=== PATIENT | female | born 1935 | race Caucasian/White ===

== ENCOUNTER → 2017-09-30 11:00 | Outpatient (CLI) | payer MEDICARE, OTHER, SELFPAY | PROVIDERS: PCP Family Medicine; Visit Provider Orthopaedic Surgery | DX: G56.01 Carpal tunnel syndrome, right upper limb (principal); I10 Essential (primary) hypertension | CPT/HCPCS: 99204 ==

== ENCOUNTER → 2017-10-04 12:46 | Outpatient (CLI) | payer MEDICARE, OTHER, SELFPAY | PROVIDERS: PCP Family Medicine; Visit Provider Orthopaedic Surgery | DX: G56.01 Carpal tunnel syndrome, right upper limb (principal); Z01.818 Encounter for other preprocedural examination | CPT/HCPCS: 29848 ==

== ENCOUNTER → 2017-10-20 08:46 | Outpatient (BNVA) | payer MEDICARE, OTHER, SELFPAY | PROVIDERS: PCP Family Medicine; Visit Provider Orthopaedic Surgery | DX: Z47.89 Encounter for other orthopedic aftercare (principal); G56.01 Carpal tunnel syndrome, right upper limb ==

== ENCOUNTER → 2017-10-25 07:39 | Outpatient (BNVA) | payer MEDICARE, OTHER, SELFPAY | PROVIDERS: PCP Family Medicine; Referring Provider Family Medicine; Visit Provider Orthopaedic Surgery | DX: R69 Illness, unspecified (principal) ==

== ENCOUNTER 2017-10-25 10:18 | Day surgery (SDC) | payer MEDICARE, OTHER, SELFPAY ==
[2017-10-25 11:26] VITALS: BP 132/79; PULSE 60; RESP 16; TEMP 36.7; O2SAT 96
[2017-10-25] MEDS: Lactated Ringers 1,000 ML 80 ML IV (11:46)
--- NOTE | 2017-10-25 14:14 | W.PM.DSUDISC ---
Discharge Plan Disposition Patient Disposition: HOME Condition: Good Discharge Details Reason For Visit: L carpal tunnel release Attending Provider: Mahendra Cherry Primary Care Provider: Ariel Mathew Home Meds and New Rx's Prescriptions: No Action aspirin 325 MG tablet 325 mg PO DAILY RF: 0 fenofibrate nanocrystallized [Tricor] 48 MG tablet 48 mg PO DAILY Qty: 90 RF: 4 lisinopril 5 MG tablet 5 mg PO DAILY Qty: 90 RF: 3 atorvastatin [Lipitor] 20 MG tablet 20 mg PO DAILY Qty: 90 RF: 4 nitroglycerin [Nitrostat] 0.4 MG tablet, sublingual 0.4 mg Sublingual PRN Qty: 25 RF: 3 atenolol [Tenormin] 50 MG tablet 50 mg PO DAILY Qty: 90 RF: 4 hydrocodone-acetaminophen 1 EACH tablet 1 tab PO Q6H PRN PRNQty: 7 RF: 0 Discharge Instructions Additional Instructions: Elevate L hand above heart level as much as possible overnite tonite. Wiggle fingers L hand 10 times/hour when awake to prevent swelling. Remove splint AND dressings after 48 hours and begin to move L wrist. May shower or bathe and get incision wet after you remove the dressings in 48 hours. Leave incision uncovered when it is dry and sealed. Use L hand as much as your discomfort allows. Take tylenol or ibuprofen as needed for pain. Follow up in 's office in 10-14 days. Equipment/Supplies: Brace Activity:: Activity as Tolerated Remove Dressings/Wound Care:: 48 hours Shower/Bathe:: 48 hours Diet:: regular Discharge Orders Discharge Orders: Discharge Order (Routine); Ordered 10/25/17 Ordered By: Mahendra Cherry
[2017-10-25 15:01] VITALS: BP 128/78; PULSE 57; RESP 16; TEMP 36.4; O2SAT 96
--- NOTE | 2017-10-25 16:15 | ROE_ITS ---
DATE OF PROCEDURE: October 25, 2017 PREOPERATIVE DIAGNOSIS: Carpal tunnel syndrome, left. POSTOPERATIVE DIAGNOSIS: Carpal tunnel syndrome, left. PROCEDURE: Endoscopic carpal tunnel release, left. SURGEON: Mahendra Cherry M.D. ANESTHESIA: IV regional, Sushant Hdez CRNA INDICATIONS: This is an 82-year-old white female with bilateral carpal tunnel syndrome. She underwe nt a successful endoscopic carpal tunnel release on the right three weeks ago. She was so pleased wi th the results she wished to proceed immediately with endoscopic carpal tunnel release on the left. T he risks and complications of the procedure were explained to the patient in detail preoperatively. PROCEDURE: The patient was taken to the Operating Room on 10/25/17. She was placed supine on the ope rating table and an IV regional anesthetic was administered to the left upper extremity. Once good a nesthesia was obtained, the left hand, wrist, and forearm were prepped and draped free in the usual s terile fashion. A transverse incision was made in line with the proximal flexion crease of the wrist beginning at the flexor carpi radialis and extending to the flexor carpi ulnaris tendon. The palmaris longus tendon was retracted radially and a distally-based fascial flap was created to gain access to the carpal can al. A synovial reflector was then used to free up any synovial attachments to the undersurface of th e volar carpal ligament. A series of obturators were used to create room for endoscope. The Brigitte en doscope blade device was then placed in the carpal canal. Care was taken to position the device agai nst the hook of the hamate on the ulnar side of the carpal canal. The endoscope was advanced until t he distal edge of the volar carpal ligament was clearly visualized. At this point, the trigger was depressed, elevating the blade and maintaining the blade in elevation, it was brought out proximally through the incision. Littler scissors were then used to perform a subcutaneous fasciotomy for a distance of 2 inches proxi mal to the incision. The wound was irrigated with saline solution. The wound margins were infiltrated with 0.5% Marcaine with epinephrine solution and a median nerve block was performed with 0.5% Marcaine with epinephrine solution. The subcutaneous veins were cauterized. The skin edges were approximated with two horizon glenys mattress sutures of #4-0 nylon suture material. The wound was dressed with Xeroform gauze, steri le gauze 4x4s, wrapped with a Kerlix bandage, and then followed by wrapping with a 3-inch Nomi bandage . A commercial cock-up wrist splint was applied. The patient's anesthesia was reversed without complications. Blood loss was minimal. She was discha rged to the Recovery Room in good condition. The patient was discharged home from the Day Surgery Unit when fully recovered from her IV regional a nesthesia. She was given instructions to try to elevate her left hand above heart level as much as p ossible overnight tonight. She is instructed to wiggle her fingers 10 times an hour while awake to p revent swelling. After 48 hours she is to remove her dressings and splint and begin to move her left wrist. After she removes the dressings she may shower or bathe and get her incision wet. She is to leave the incision uncovered when it is dry and sealed. She may use her left wrist as much as disco mfort allows. Since she did not need to use any opioids for postoperative pain following her right c arpal tunnel release, I am not prescribing any new ones. I instructed her to take Tylenol or ibuprof en for pain if needed. She is advised she may use her left hand as much as discomfort allows. She w ill follow up in Dr. Cherry's office in 10 to 14 days.
== END 2017-10-25 15:15 | disposition home or self-care (01) ==
PROVIDERS: PCP Family Medicine; Visit Provider Orthopaedic Surgery
PROC: 01N54ZZ Release Median Nerve, Percutaneous Endoscopic Approach (ICD-10-PCS; CPT 29848; principal; 2017-10-25 12:00)
DX: G56.02 Carpal tunnel syndrome, left upper limb (principal); I10 Essential (primary) hypertension
CPT/HCPCS: 29848; J0690; J2250; J3010; L3908

== ENCOUNTER → 2017-11-11 10:09 | Outpatient (BNVA) | payer MEDICARE, OTHER, SELFPAY | PROVIDERS: PCP Family Medicine; Referring Provider Family Medicine; Visit Provider Orthopaedic Surgery | DX: Z47.89 Encounter for other orthopedic aftercare (principal); G56.02 Carpal tunnel syndrome, left upper limb; I10 Essential (primary) hypertension ==

== ENCOUNTER 2019-08-10 02:30 | Outpatient (CLI) | payer MEDICARE, OTHER, SELFPAY ==
[2019-08-10 12:40] LABS: Anion Gap 9.1 mmol/L (3-11); BUN 23 mg/dL (7-18); CO2 27.9 mmol/L (21.0-32.0); CREATININE 0.86 mg/dL (0.55-1.02); Calcium 9.5 mg/dL (8.5-10.1); Chloride 104 mmol/L (98-107); Glucose 105 mg/dL (74-106); Magnesium 1.7 mg/dL (1.8-2.4); Potassium 4.9 mmol/L (3.5-5.1); Sodium 141 mmol/L (136-145)
== END 2019-08-10 02:50 ==
PROVIDERS: PCP Family Medicine; Visit Provider Family Medicine
DX: E83.42 Hypomagnesemia (principal); E87.1 Hypo-osmolality and hyponatremia
CPT/HCPCS: 36415; 80048; 83735

== ENCOUNTER 2020-06-16 10:24 | Emergency (ER) | payer MEDICARE, OTHER, SELFPAY ==
[2020-06-16] VITALS (37 sets, daily range): BP systolic 129–177; BP diastolic 61–114; PULSE 54–69; RESP 13–25; TEMP 37.1; O2SAT 95–98
--- NOTE | 2020-06-16 10:15 | RT.EKG_ITS ---
APPROVED REPORT Exam: Resting ECG Reason for Exam: chest pain Patient Location: E HR:58 bpm ECG Measurements Heart Rate 58 AXIS SC 175 P -33 QRSd 94 QRS 31 QT 422 T 57 QTc 415 Conclusion Sinus bradycardia...rate< 60 Anteroseptal infarct, age Q >35mS, T neg, V1-V2 no stemi
--- NOTE | 2020-06-16 10:45 | DI.RAD_ITS ---
Exam(s) XR CHEST 2V PA LATERAL EXAM: XR CHEST 2V PA LATERAL CLINICAL HISTORY: shakiness. TECHNIQUE: 2D digital imaging was performed. COMPARISON: Prior chest x-ray 07/10/2010 FINDINGS: There has been interval sternotomy. Sternotomy wires are now evident. Heart size is upper normal. Thoracolumbar scoliosis is again noted. Mediastinum is not widened. Right lung is clear. There is platelike atelectasis in the left lung base, laterally. No pleural effusions. No pulmonary edema. Aortic calcification noted as well as calcification in what appears to be the left common carotid monica gin . IMPRESSION: There is platelike atelectasis in the lateral left lung base. Sternotomy wires are noted. Severe th oracic scoliosis. DATA REPOSITORY: RADIATION DOSE DELIVERED:
--- NOTE | 2020-06-16 11:01 | ED.GENADUL_ITS ---
Discharge Plan Disposition Patient Disposition: HOME Condition: Stable Discharge Details Clinical Impression: Alteration in vision Primary Care Provider: Ariel Mathew ED Provider: Maryann Vasquez Home Meds and New Rx's Prescriptions: Continued clotrimazole [Lotrimin AF (clotrimazole)] 1 % cream 1 applic TP TID Qty: 24 RF: 0 atenolol [Tenormin] 50 mg tablet 50 mg PO DAILY Qty: 90 RF: 4 lisinopril 10 mg tablet 10 mg PO DAILY Qty: 90 RF: 3 nitroglycerin [Nitrostat] 0.4 mg tablet, sublingual 0.4 mg Sublingual PRN Qty: 25 RF: 3 triamcinolone acetonide 0.1 % cream 1 applic TP BID PRN (Reason: scalp rash) Qty: 30 RF: 1 aspirin 325 MG tablet 325 mg PO DAILY RF: 0 atorvastatin [Lipitor] 20 mg tablet 20 mg PO DAILY Qty: 90 RF: 4 fenofibrate nanocrystallized [Tricor] 48 mg tablet 48 mg PO DAILY Qty: 90 RF: 4 Discharge Instructions Additional Instructions: Please follow-up with your primary care physician on Wednesday and the neurologist on Wednesday as well Take your aspirin when you arrive home and continue to take your aspirin and other medications as prescribed Should you have recurrent event, speech, sensation change, headache, persistent vision change, or with any new or worsening complaints including chest pain or shortness of breath please return immediately to the emergency room for reevaluation Referrals: Trudi Maldonado MD [ [facility] STAFF PHYSICIAN] - Discharge Data Discharge Date/Time-TO BE ENTERED AT DEPARTURE: 06/16/20 14:24 Medical Decision Making CTA does not show acute pathology, no significant carotid artery stenosis per radiology interpretation and my review Patient has been completely asymptomatic throughout the entirety of her visit today She denies headache, dizziness, persistent vision change My suspicion for intraocular pathology is quite low given her presentation ABCD score 2 Diagnostic labs do not show acute pathology, given patient's initial generalized weakness and tremulousness, I did order a troponin, repeat was subsequently ordered although patient did not have chest pain or shortness of breath Her neurological exam is completely benign Low suspicion for retinal artery occlusion or retinal vein occlusion though she did not have any loss of vision or pain in the affected eye Clinical suspicion given presentation for vitreous hemorrhage, retinal detachment, or any other more ominous pathology, I cannot completely exclude a T IA although my suspicion is lower for this She will need close outpatient follow-up, referral has been made to neurology and primary care physician for close outpatient reevaluation I discussed smoking cessation with patient She will take her aspirin when she arrives home and she is on a full dose aspirin persistently Again she has no chest pain or shortness of breath, she is completely neurologic ally intact, she is ambulatory with steady gait and does not have any signs of posterior stroke on exam today Bactrim nausea sodium slightly benign throughout the entirety of this encounter, her blood pressure was noted to be initially elevated, at time of discharge is 146/70 without any intervention She is discharged home in the care of her family. She has comfortable discharge home at this time I do suspect there is a large anxiety component to her presentation, this is obviously a diagnosis of exclusion and therefore close outpatient follow-up is necessary The I will leave additional testing and intervention to the discretion of the outpatient evaluation There is no indication for emergent inpatient placement, I will leave outpatient MRI discretion of ambulatory evaluation Differential Diagnosis Differential Diagnosis: Ocular migraine, TIA, vitreous hemorrhage, dissection Medical Records Medical records reviewed: Yes I reviewed the patient's medical records. Lab Data Lab results reviewed: Yes I reviewed the patient's lab results. HPI General Mode of arrival: ambulatory . Date/Time Provider Initiated Documentation: 06/16/20 10:25 . Limitations to Documentation: no limitations . Information obtained by: patient . HPI Narrative: This 85-year-old female presents with report of feeling shaky at approximately 8:00. She had fogginess in her right thigh shortly thereafter. She was standing over the sink using steaming water at that time. She denies any speech or sensation changes. She denies any strength pain to bilateral upper or lower extremities. She denies any chest pain or shortness of breath. Patient denies any fever or chills. She denies any urinary symptoms. She denies any persistent visual change. She denies any headache. Patient denies any additional complaints at this time. She has been ambulatory since the event occurred. She states she has baseline vertigo but this was different for her. She adamantly denies any dizziness asso ciated with this episode. She states that the sensation of fogginess and her right thigh lasted approximately 1 to 2 seconds and then resolved completely. She adamantly denies any loss of vision or vision change. She denies a sensation of a straight being pulled over her eye. She states that she has frequent episodes of anxiety that present like this, she has never been formally evaluated for them but she describes them as anxiety . She states that typically she becomes very anxious before she has visitors and her son is visiting today. She denies any nausea or vomiting. She denies any chest pain or shortness of breath. She denies any current weakness or dizziness. She was ambulatory into the emergency room she states that her baseline. Related Data Home Medications Medication Instructions Recorded Confirmed aspirin 325 mg PO DAILY tab-cap 07/27/12 06/16/20 triamcinolone acetonide 0.1 % 1 applic TP BID PRN #30 gm 07/29/18 06/16/20 topical cream clotrimazole 1 % topical cream 1 applic TP TID #24 gm 11/22/18 06/16/20 atenolol 50 mg tablet 50 mg PO DAILY #90 tab-cap 09/19/19 06/16/20 atorvastatin 20 mg tablet 20 mg PO DAILY #90 tab-cap 10/24/19 06/16/20 fenofibrate nanocrystallized 48 mg 48 mg PO DAILY #90 tab-cap 02/27/20 06/16/20 tablet lisinopril 10 mg tablet 10 mg PO DAILY #90 tab 06/11/20 06/16/20 nitroglycerin 0.4 mg sublingual 0.4 mg SUBLINGUAL PRN #25 tab-cap 06/11/20 06/16/20 tablet Previous Rx's Medication Instructions Recorded triamcinolone acetonide 0.1 % 1 applic TP BID PRN #30 gm 07/29/18 topical cream clotrimazole 1 % topical cream 1 applic TP TID #24 gm 11/22/18 atenolol 50 mg tablet 50 mg PO DAILY #90 tab-cap 09/19/19 atorvastatin 20 mg tablet 20 mg PO DAILY #90 tab-cap 10/24/19 fenofibrate nanocrystallized 48 mg 48 mg PO DAILY #90 tab-cap 02/27/20 tablet lisinopril 10 mg tablet 10 mg PO DAILY #90 tab 06/11/20 nitroglycerin 0.4 mg sublingual 0.4 mg SUBLINGUAL PRN #25 tab-cap 06/11/20 tablet Allergies Allergy/AdvReac Type Severity Reaction Status Date / Time clindamycin Allergy Intermediate Facial Verified 06/16/20 10:37 swelling ibuprofen Allergy Intermediate FACIAL Verified 06/16/20 10:37 SWELLING naproxen Allergy Intermediate FACIAL Verified 06/16/20 10:37 SWELLING Penicillins Allergy Intermediate FACIAL Verified 06/16/20 10:37 SWELLING Sulfa (Sulfonamide Allergy Unknown Verified 06/16/20 10:37 Antibiotics) General Stated Complaint: CVA/TIA IVETTE: 2 Review of Systems Narrative: Review of systems negative x7 aside from where indicated in HPI [facility] Medical History (Updated 06/16/20 @ 13:59 by JL Mendenhall) CAD (coronary artery disease) Hx of cancer of uterus Hyperlipidemia Hypertension Hypomagnesemia Surgical History Abdominal hysterectomy endometrial CA Angioplasty Appendectomy Biopsy, Soft Tissue (02/17/17) skin of back, left spine - residual basal cell carcinoma, completely excised. LEFT HEART CARDIAC CATH 50% LAD occluded Family History FAMILY HISTORY Neoplasm BREAST Social History Smoking/Tobacco Use Status: Current every day Tobacco Type: cigarettes Smoking risk assessment performed?: Yes Alcohol Intake: never Drug use: Never Substance use type: does not use Household members: none Frequency: does not exercise Tigist/Sabianism: No preference Seatbelt use: always Do you feel safe at home: Yes Do you feel safe in your relationship?: Yes Exam Const General: cooperative, no acute distress and well developed HENMT Other: No visible sign of trauma Eyes Pupils: PERRL EOM: EOM intact bilaterally Neck Other: No carotid bruit Resp Effort & Inspection: normal respiratory effort Auscultation: clear to auscultation bilaterally Cardio Rate: regular rate Rhythm: regular rhythm GI Inspection: normal to inspection Other: No abdominal tenderness Skin General skin exam: no rashes or lesions noted Neuro General: patient alert and patient oriented x3 Cranial Nerves: CN's II-XI intact bilaterally and PERRL Cognition: normal cognition Speech: speech normal Gait: normal gait Motor: strength 5/5 throughout and no pronator drift Sensory Exam: no sensory deficits noted Coordination: [id number] test normal and [id number]-[id number] test normal Extrem Other: Distal pulses intact Strength and sensation intact distally Course Vital Signs Vital signs: Vital Signs Temperature 37.1 C 06/16/20 10:29 Pulse 66 06/16/20 10:29 Respiratory Rate 25 H 06/16/20 10:29 Blood Pressure 177/114 H 06/16/20 10:29 Pulse Oximetry 98 06/16/20 10:29 Temperature 37.1 C 06/16/20 10:29 Temperature Source Temporal Artery Scan 06/16/20 10:29 Pulse 62 06/16/20 10:49 Pulse 59 L 06/16/20 10:50 Respiratory Rate 18 06/16/20 10:50 Respiratory Effort Non-Labored 06/16/20 10:40 Respiratory Depth Normal 06/16/20 10:40 Respiratory Pattern Normal 06/16/20 10:40 Blood Pressure 176/61 H 06/16/20 10:49 Blood Pressure Mean 87 06/16/20 10:49 Blood Pressure Position Supine 06/16/20 10:29 Pulse Oximetry 97 06/16/20 10:50 Oxygen Delivery Method Room Air 06/16/20 10:29 Oxygen Flow Rate 0 06/16/20 10:29 Pain Level 0 06/16/20 10:29
[2020-06-16 11:12] LABS: Abs Immature Grans 0.03 10^3/uL (0.0-0.06); Absolute Basophil Count 0.06 10^3/uL (0.0-0.2); Absolute Eosinophil Count 0.16 10^3/uL (0.0-0.7); Absolute Lymphocyte Count 1.87 10^3/uL (1.2-3.4); Absolute Monocyte Count 0.59 10^3/uL (0.1-0.8); Absolute Neutrophil Count 6.54 10^3/uL (1.2-6.7); Basophils % 0.6; Eosinophils % 1.7; HCT 41.5 % (36.0-46.0); HGB 13.4 g/dL (11.2-15.7); Immature Grans % 0.3; Lymphocytes % 20.2; MCH 30.2 pg (27.0-33.0); MCHC 32.3 % (32.0-36.0); MCV 93.5 fL (80-95); MPV 10.3 fL (8.0-11.0); Monocytes % 6.4; Neutrophils % 70.8; Nucleated RBC 0 %; Platelet Count 203 10^3/uL (130-400); RBC 4.44 10^6/uL (3.93-5.22); RDW 12.9 % (11.7-14.6); RDW-SD 44.2 fL; WBC 9.25 10^3/uL (4.4-10.8)
[2020-06-16 11:27] LABS: Bilirubin Negative (Negative); Blood Negative (Negative); Clarity Clear (Clear); Glucose Negative (Negative); Ketones Negative (Negative); Leukocyte Esterase Negative (Negative); Nitrite Negative (Negative); Specific Gravity 1.015 (1.005-1.025); Urobilinogen 0.2 EU/dL (Up TO 0.2)
[2020-06-16 11:28] LABS: ALT 27 U/L (14-59); AST 19 U/L (15-37); Albumin 4.3 g/dL (3.4-5.0); Alkaline Phosphatase 78 U/L (46-116); Anion Gap 9.8 mmol/L (3-11); BUN 22 mg/dL (7-18); Bilirubin, Total 0.5 mg/dL (0.2-1.0); CO2 28.2 mmol/L (21.0-32.0); Calcium 9.4 mg/dL (8.5-10.1); Chloride 105 mmol/L (98-107); Estimated GFR 52.82 (mL/min/1.73m2); Glucose 117 mg/dL (74-106); Potassium 4.7 mmol/L (3.5-5.1); Sodium 143 mmol/L (136-145); Total Protein 7.7 g/dL (6.4-8.2); Troponin I < 0.05 ng/mL (<0.06)
[2020-06-16 11:34] LABS: TSH 1.71 uIU/mL (0.36-3.74)
[2020-06-16] MEDS: Normal Saline - Diluent 50 ML VIAL IV (12:03)
[2020-06-16] MEDS: Omnipaque 350 MG/ML 100 ML BTL IJ (12:04)
--- NOTE | 2020-06-16 12:06 | DI.CT_ITS ---
Exam(s) CT BRAIN NECK CTA EXAM: CT BRAIN NECK CTA CLINICAL HISTORY: right vision loss. TECHNIQUE: Imaging Protocol: Axial CT angiography was performed with multi-slice acquisition and mu lti-planar and/or 3D reconstructions. CONTRAST MATERIAL: Intravenous: Omnipaque 350 Contrast volume:85 cc COMPARISON: Chest x-ray earlier today. FINDINGS: CTA Neck W: Aortic arch anatomy: The entire aortic arch is not included in the field of view. The lower most brittany ge reveals a diameter of 3 point 9 cm. Also somewhat of a pseudo-coarctation configuration of the di stal arch. Sternotomy wires are noted. Anterior circulation: Bovine configuration. No evidence of significant stenosis at the origin of the common carotid arteries. Distally there is plaque in both common carotid arteries and proximal internal carotid arteries with approximately 50 p ercent stenosis on the right side and 60 percent stenosis on the left side. Above this level the int ernal carotid arteries are patent in the mid-upper neck. Posterior circulation: Both vertebral arteries originated conventional fashion off of the subclavian arteries. Left vertebr al artery is dominant although both vessels exhibits satisfactory caliber in the foramen transversari um. Both vertebral arteries contribute to the formation of the basilar artery at the skull base. CTA Brain W: Anterior circulation: Both internal carotid arteries are demonstrated to be patent in the skull base and intracavernous asp ects with some mural calcification within the cavernous sinuses but no significant stenosis within th e intracavernous internal carotid arteries. Supraclinoid aspects both internal carotid arteries are patent. Both middle cerebral arteries appear patent. Left A1 segment is patent. Right A1 segment i s not opacified, occluded or atretic. Both anterior cerebral arteries are opacified although the lef t directly via the ipsilateral A1 segment. On the right side the anterior cerebral artery appears oc cluded just distal to its origin beyond the anterior communicating artery. However, there is a right anterior cerebral artery opacified more distally which comes off of the dominant left anterior cereb ral artery. Posterior circulation: Basilar artery is formed at the skull base by both vertebral arteries. There is mural calcification of both vertebral arteries at the skull base but no tight stenosis at this level.. Distally the basi lar artery gives off both superior cerebellar arteries although there is a tight focal stenosis in th e right superior cerebellar artery 5 millimeters distal to its origin. Above this level the basilar artery terminates as patent bilateral posterior cerebral arteries. CT BRAIN: There is no evidence of intracranial hemorrhage, mass effect, or shift of midline structures. There are no extra-axial fluid collections. Ventricles are not enlarged or shifted and there is no blood w ithin the ventricular system nor within the basal cisterns. There are no ring enhancing lesions in t he brain and no abnormal meningeal enhancement. IMPRESSION: 1. 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 2. Vertebral arteries are patent. 3. In the intracranial compartment there is either conclusion or tree see of the right A1 segment. Right anterior cerebral artery appears occluded 3 millimeters distal to its origin but reconstituted more distally off of the patent left anterior cerebral artery. The left A1 segment is dominant. An terior communicating artery is patent. 4. Recommend follow-up brain MRI/ MRA Study 1st read by [facility]. Final report called by myself to [facility] ER physician 10/2020 6:57 p.m. RADIATION DOSE DELIVERED: 2,097.34mGy.cm Total DLP DATA REPOSITORY: All CT scans at this facility are submitted to the National Radiology Data Registry (NRDR) Dose Index Registry (DIR) with the [employer] (ACR). RADIATION OPTIMIZATION: All CT scans at this facility use at least one of these dose optimization te chniques: automated exposure control; mA and/or kV adjustment per patient size (includes targeted exa ms where dose is matched to clinical indication); or iterative reconstruction.
--- NOTE | 2020-06-16 12:49 | DI.VRAD_ITS ---
PROCEDURE INFORMATION: Exam: XR Chest Exam date and time: 06/16/2020 12:12 PM Age: 85 years old Clinical indication: Other: Shakiness TECHNIQUE: Imaging protocol: XR of the chest. Views: 2 views. COMPARISON: No relevant prior studies available. FINDINGS: Lungs: Unremarkable. No consolidation. Pleural spaces: Unremarkable. No pleural effusion. No pneumothorax. Heart/Mediastinum: Unremarkable. No cardiomegaly. Bones/joints: Severe thoracic scoliosis. Median sternotomy wires. IMPRESSION: No acute cardiopulmonary findings. Dictated and Authenticated by: Kev Loo MD. Ordering:JAMES Wolf MD
--- NOTE | 2020-06-16 12:59 | DI.VRAD_ITS ---
PROCEDURE INFORMATION: Exam: CT Angiography Head With Contrast, Arteriography Exam date and time: 06/16/2020 11:54 AM Age: 85 years old Clinical indication: Other: Right vision loss TECHNIQUE: Imaging protocol: Computed tomography angiography of the head with contrast. Exam focused on the arteries. 3D rendering (Not supervised by radiologist): MIP and/or 3D reconstructed images were created by the technologist. Radiation optimization: All CT scans at this facility use at least one of these dose optimization techniques: automated exposure control; mA and/or kV adjustment per patient size (includes targeted exams where dose is matched to clinical indication); or iterative reconstruction. Contrast material: OMNIPAQUE 350; Contrast volume: 85 ml; Contrast route: INTRAVENOUS (IV); COMPARISON: CT HEAD WITHOUT CONTRAST 05/09/2017 11:22 AM FINDINGS: ANTERIOR CIRCULATION: Right internal carotid artery: Unremarkable. Intracranial segment is patent with no significant stenosis. No aneurysm. Right middle cerebral artery: Unremarkable. No occlusion or significant stenosis. No aneurysm. Right anterior cerebral artery: Right A1 segment is atretic Unremarkable. No occlusion or significant stenosis. No aneurysm. Left internal carotid artery: Unremarkable. Intracranial segment is patent with no significant stenosis. No aneurysm. Left middle cerebral artery: Unremarkable. No occlusion or significant stenosis. No aneurysm. Left anterior cerebral artery: Unremarkable. No occlusion or significant stenosis. No aneurysm. POSTERIOR CIRCULATION: Right vertebral artery: Unremarkable. No occlusion or significant stenosis. No aneurysm. Left vertebral artery: Unremarkable. No occlusion or significant stenosis. No aneurysm. Basilar artery: Unremarkable. No occlusion or significant stenosis. No aneurysm. Right posterior cerebral artery: Unremarkable. No occlusion or significant stenosis. No aneurysm. Left posterior cerebral artery: Unremarkable. No occlusion or significant stenosis. No aneurysm. Brain: No definite mass, mass effect, or midline shift. Cerebral ventricles: No ventriculomegaly. Bones/joints: Unremarkable. No acute fracture. Soft tissues: Unremarkable. IMPRESSION: No large vessel stenosis or occlusion. PROCEDURE INFORMATION: Exam: CT Angiography Neck With Contrast Exam date and time: 06/16/2020 11:54 AM Age: 85 years old Clinical indication: Other: Right vision loss TECHNIQUE: Imaging protocol: Computed tomography angiography of the neck with contrast. 3D rendering (Not supervised by radiologist): MIP and/or 3D reconstructed images were created by the technologist. Contrast material: OMNIPAQUE 350; Contrast volume: 85 ml; Contrast route: INTRAVENOUS (IV); COMPARISON: CT HEAD WITHOUT CONTRAST 05/09/2017 11:22 AM FINDINGS: Right common carotid artery: Plaque at the bifurcation. No dissection or occlusion. Right internal carotid artery: No stenosis of the extracranial segment. No dissection or occlusion. Right external carotid artery: No occlusion or stenosis of the origin. Right vertebral artery: No stenosis. No dissection or occlusion. Left common carotid artery: Plaque at the bifurcation. No dissection or occlusion. Left internal carotid artery: No stenosis of the extracranial segment. No dissection or occlusion. Left external carotid artery: No occlusion or stenosis of the origin. Left vertebral artery: No stenosis. No dissection or occlusion. Bones/joints: No acute fracture. Soft tissues: Normal. No significant soft tissue swelling. IMPRESSION: Less than 50% stenosis bilateral internal carotid arteries. REFERENCES: NASCET CRITERIA. The degree of internal carotid artery stenosis is based on NASCET criteria. Normal is no stenosis. Mild is less than 50% stenosis. Moderate is 50-69% stenosis. Severe is 70% to 99% stenosis. Total occlusion is no detectable patent lumen. Dictated and Authenticated by: Kev Loo MD. Ordering:JAMES Wolf MD
[2020-06-16 13:53] LABS: Troponin I < 0.05 ng/mL (<0.06)
--- NOTE | 2020-06-16 14:37 | NUR.NOTE ---
Nursing Note: Faxed referral to neuro. MG
--- NOTE | 2020-06-18 10:58 | PDOC.ERCMPRO ---
Care Management Progress Note CM rec'd referral re: F/U MRI. CM called ED and spoke with Rashmi and Dr. Montes, and reviewed chart. Dr. Montes spoke with Dr. Fu to make a plan for urgent MRI, as patient is scheduled to see Neurology today, 06/18/20.
== END 2020-06-16 14:24 | disposition home or self-care (01) ==
PROVIDERS: Emergency Provider Physician Assistant; PCP Family Medicine
DX: H53.8 Other visual disturbances (principal); R93.89 Abnormal findings on diagnostic imaging of other specified body structures
CPT/HCPCS: 36416; 70496; 70498; 80053; 82962; 93005; 99285; 71046; 81003; 84443; 84484; 85025; 93010; 99284; J3490

== ENCOUNTER → 2020-06-18 13:33 | Outpatient (BNVA) | payer MEDICARE, OTHER, SELFPAY | PROVIDERS: PCP Family Medicine; Referring Provider Family Medicine; Visit Provider Psychiatry & Neurology Neurology | DX: F41.9 Anxiety disorder, unspecified (principal); H54.7 Unspecified visual loss | CPT/HCPCS: 99215 ==

== ENCOUNTER 2020-06-21 08:12 | Day surgery (SDC) | payer MEDICARE, OTHER, SELFPAY ==
[2020-06-21 08:36] VITALS: BP 143/75; PULSE 56; RESP 16; TEMP 36.6; O2SAT 98
[2020-06-21] MEDS: Lactated Ringers 1,000 ML 80 ML IV (08:56)
[2020-06-21] MEDS: VANCOMYCIN/WATER (PEG) 1 GM/200 ML BAG IVPB (08:57)
--- NOTE | 2020-06-21 09:12 | W.PM.DSUDISC ---
Discharge Plan Disposition Patient Disposition: HOME Condition: Good Discharge Details Reason For Visit: Correction right 2nd hammertoe deformity Attending Provider: Geraldo Andres Primary Care Provider: Ariel Mathew Home Meds and New Rx's Prescriptions: New oxycodone-acetaminophen 2.5-325 mg tablet 1 tab PO QID PRNQty: 7 RF: 0 Continued clotrimazole [Lotrimin AF (clotrimazole)] 1 % cream 1 applic TP TID Qty: 24 RF: 0 atenolol [Tenormin] 50 mg tablet 50 mg PO DAILY Qty: 90 RF: 4 lisinopril 10 mg tablet 10 mg PO DAILY Qty: 90 RF: 3 nitroglycerin [Nitrostat] 0.4 mg tablet, sublingual 0.4 mg Sublingual PRN Qty: 25 RF: 3 triamcinolone acetonide 0.1 % cream 1 applic TP BID PRN (Reason: scalp rash) Qty: 30 RF: 1 aspirin 325 MG tablet 325 mg PO DAILY RF: 0 atorvastatin [Lipitor] 20 mg tablet 20 mg PO DAILY Qty: 90 RF: 4 fenofibrate nanocrystallized [Tricor] 48 mg tablet 48 mg PO DAILY Qty: 90 RF: 4 Discharge Instructions Activity:: Elevate Remove Dressings/Wound Care:: Do Not Remove Shower/Bathe:: Cover Diet:: Normal Diet Discharge Orders Discharge Orders: Discharge Order (Routine); Ordered 06/21/20 Ordered By: Geraldo Andres DS: Diagnosis Discharge Diagnosis (1) Hammertoe of second toe of right foot: Status: Acute
[2020-06-21] MEDS: Bupivacaine 0.5% Pres-Free 30 ML VIAL (09:42)
[2020-06-21] MEDS: Dexamethasone 4 MG/ML VIAL (09:48)
[2020-06-21 10:08] VITALS: BP 129/75; PULSE 64; RESP 16; TEMP 36.4; O2SAT 97
--- NOTE | 2020-06-21 10:13 | W.PM.DSUDISC ---
Discharge Plan Disposition Patient Disposition: HOME Condition: Good Discharge Details Reason For Visit: Correction right 2nd hammertoe deformity Attending Provider: Geraldo Andres Primary Care Provider: Ariel Mathew Home Meds and New Rx's Prescriptions: Continued clotrimazole [Lotrimin AF (clotrimazole)] 1 % cream 1 applic TP TID Qty: 24 RF: 0 atenolol [Tenormin] 50 mg tablet 50 mg PO DAILY Qty: 90 RF: 4 lisinopril 10 mg tablet 10 mg PO DAILY Qty: 90 RF: 3 nitroglycerin [Nitrostat] 0.4 mg tablet, sublingual 0.4 mg Sublingual PRN Qty: 25 RF: 3 triamcinolone acetonide 0.1 % cream 1 applic TP BID PRN (Reason: scalp rash) Qty: 30 RF: 1 aspirin 325 MG tablet 325 mg PO DAILY RF: 0 atorvastatin [Lipitor] 20 mg tablet 20 mg PO DAILY Qty: 90 RF: 4 fenofibrate nanocrystallized [Tricor] 48 mg tablet 48 mg PO DAILY Qty: 90 RF: 4 Discharge Instructions Activity:: Elevate Remove Dressings/Wound Care:: Do Not Remove Shower/Bathe:: Cover Diet:: Normal Diet Discharge Orders Discharge Orders: Discharge Order (Routine); Ordered 06/21/20 Ordered By: Geraldo Andres DS: Diagnosis Discharge Diagnosis (1) Hammertoe of second toe of right foot: Status: Acute
[2020-06-21 10:52] VITALS: BP 135/77; PULSE 58; RESP 18; TEMP 36.4; O2SAT 97
== END 2020-06-21 11:17 | disposition home or self-care (01) ==
PROVIDERS: PCP Family Medicine; Visit Provider Podiatrist
PROC: (CPT 28820; principal; 2020-06-21 10:00)
DX: M20.41 Other hammer toe(s) (acquired), right foot (principal); I25.10 Atherosclerotic heart disease of native coronary artery without angina pectoris; I10 Essential (primary) hypertension
CPT/HCPCS: 28820; J1100

== ENCOUNTER 2020-11-26 11:41 | Outpatient (CLI) | payer MEDICARE, OTHER, SELFPAY ==
[2020-11-26 13:10] LABS: Calculated LDL 104 mg/dL (<100); Cholesterol 178 mg/dL (<200); HDL Cholesterol 37 mg/dL (40-60); Triglyceride 186 mg/dL (<150)
== END 2020-11-26 11:42 | disposition home or self-care (01) ==
LOC: LOS 11:41
PROVIDERS: PCP Family Medicine; Referring Provider Family Medicine; Visit Provider Family Medicine
DX: E78.5 Hyperlipidemia, unspecified (principal)
CPT/HCPCS: 36415; 80061

== ENCOUNTER 2021-08-21 15:13 | Outpatient (REF) | payer MEDICARE, OTHER, SELFPAY ==
[2021-08-21 18:22] LABS: Bilirubin Negative (Negative); Blood Large (Negative); Clarity Cloudy (Clear); Glucose Negative (Negative); Ketones Negative (Negative); Leukocyte Esterase Large (Negative); Nitrite Positive (Negative); Urobilinogen 0.2 EU/dL (Up TO 0.2); pH 5.5 (5-8)
[2021-08-21 18:32] LABS: Bacteria Many HPF (Negative); C & S Indicated? Yes; Casts Negative LPF (Negative); Crystals Negative HPF (Negative); Epithelial Cells Few HPF (Negative); Mucus Moderate (Negative); RBC 20-50 HPF (0-2); WBC >50 HPF (0-5)
== END 2021-08-21 15:14 | disposition home or self-care (01) ==
LOC: LBN 15:13
PROVIDERS: PCP Family Medicine; Visit Provider Physician Assistant Medical
DX: R39.89 Other symptoms and signs involving the genitourinary system (principal)
CPT/HCPCS: 87077; 81003; 81015; 87086; 87186

== ENCOUNTER 2022-04-18 11:59 | Emergency (ER) | payer MEDICARE, OTHER, SELFPAY ==
[2022-04-18 12:05] VITALS: BP 167/70; PULSE 68; RESP 18; TEMP 36.8; O2SAT 98
--- NOTE | 2022-04-18 12:30 | DI.RAD_ITS ---
Exam(s) XR HIP RT COMPLETE AP PELVIS EXAM: XR HIP RT COMPLETE AP PELVIS INDICATION: pain right hip, atraumatic. COMPARISON: CR BILATERAL HIPS ADULT from 09/07/2016 TECHNIQUE: 2D digital imaging was performed. Three views. FINDINGS: No evidence of fracture or dislocation. Mild degenerative changes in the hips and SI joints. Severe degenerative changes in the lower lumbar spine. Surgical clips on both sides of the pelvis. Promin ent vascular calcifications. IMPRESSION: No acute abnormality. DATA REPOSITORY: RADIATION DOSE DELIVERED:
--- NOTE | 2022-04-18 13:31 | DI.VRAD_ITS ---
PROCEDURE INFORMATION: Exam: XR Right Hip Exam date and time: 04/18/2022 1:01 PM Age: 86 years old Clinical indication: Hip pain; Right hip TECHNIQUE: Imaging protocol: Radiologic exam of the right hip. Views: 2 or 3 views hip with pelvis when performed. COMPARISON: CR BILATERAL HIPS ADULT 09/07/2016 3:02 PM FINDINGS: Bones/joints: Degenerative changes in the sacroiliac joints and both hips. There is no evidence of acute fracture.There is no evidence of malalignment or dislocation. Soft tissues: Unremarkable. Intraperitoneal space: Surgical clips in the pelvis IMPRESSION: There is no evidence of acute fracture.There is no evidence of malalignment or dislocation. Dictated and Authenticated by: Emily Simpson MD. Ordering:JAMES Wolf MD
[2022-04-18 13:53] VITALS: BP 163/76; PULSE 59; RESP 16; TEMP 36.1; O2SAT 98
--- NOTE | 2022-04-18 15:03 | W.ED.GENAD ---
Discharge Plan Disposition Patient Disposition: Home Discharge Details Clinical Impression: Acute pain of right hip Primary Care Provider: Ariel Mathew ED Provider: Maryann Vasquez Home Meds and New Rx's Prescriptions: New methylprednisolone [Medrol (Son)] 4 mg tablets,dose pack See Rx Instructions .ROUTE .COMPLEX Qty: 21 0RF Rx Instructions: orally per package directions cyclobenzaprine 5 mg tablet 5 mg PO BID PRNQty: 10 0RF Continued clotrimazole [Lotrimin AF (clotrimazole)] 1 % cream 1 applic TP TID Qty: 24 0RF triamcinolone acetonide 0.1 % cream 1 applic TP BID PRN (Reason: scalp rash) Qty: 30 1RF atenolol [Tenormin] 50 mg tablet 50 mg PO DAILY Qty: 90 4RF atorvastatin [Lipitor] 20 mg tablet 20 mg PO DAILY Qty: 90 4RF aspirin 325 MG tablet 325 mg PO DAILY fenofibrate nanocrystallized [Tricor] 48 mg tablet 48 mg PO DAILY Qty: 90 4RF lisinopril 10 mg tablet 10 mg PO DAILY Qty: 90 3RF sertraline 25 mg tablet 25 mg PO DAILY Qty: 90 3RF nitroglycerin [Nitrostat] 0.4 mg tablet, sublingual 0.4 mg Sublingual PRN Qty: 25 3RF Discharge Instructions Instructions: Leg Pain (ED) Additional Instructions: Please follow-up with your primary care physician and orthopedist with persistent pain Take the Medrol Dosepak as prescribed You may try taking the Flexeril, this is a muscle relaxant, this is to be taken twice a day as needed for discomfort Referrals: Skyler Weaver MD [ [facility] STAFF PHYSICIAN] - Ariel Mathew MD [Primary Care Provider] - 2 days Medical Decision Making 86-year-old female with hip pain, no evidence of acute abnormality on x-ray, no abdominal tenderness or CVA tenderness, no abdominal bruit or pulsatile mass, ambulatory with steady gait, mild tenderness with full extension of back, comfortable in flexion X-ray ordered for basic evaluation of right hip and pelvis, does not show evidence of acute abnormality No midline lumbar spine tenderness Discharged home on steroids, 5 mg Flexeril, and encouraged to follow-up with primary care physician on Wednesday Return precautions reviewed and patient expressed understanding Medical Records Medical records reviewed: Yes I reviewed the patient's medical records. Lab Data Lab results reviewed: Yes I reviewed the patient's lab results. HPI General Date/Time Provider Initiated Documentation: 04/18/22 12:14. HPI Narrative: This 86-year-old female presents with report of right lower back pain worse with sitting up straight. Denies known trauma. States he has a history of sciatica but this is different. Denies any urinary complaints. Denies any pain at rest, predominantly with position change Denies fever or chills, denies any strength changes to your lower extremities or changes in bowel or bladder. Denies any illicit drug use. Has taken Tylenol without alleviation in pain. Related Data Home Medications Medication Instructions Recorded Confirmed aspirin 325 mg tablet 325 mg PO DAILY 07/27/12 04/18/22 triamcinolone acetonide 0.1 % 1 applic topical BID PRN scalp 07/29/18 04/18/22 topical cream rash #30 grams clotrimazole 1 % topical cream 1 applic topical TID #24 grams 11/22/18 04/18/22 (Lotrimin AF (clotrimazole)) fenofibrate nanocrystallized 48 mg 48 mg PO DAILY #90 tab-caps 06/09/21 04/18/22 tablet (Tricor) lisinopril 10 mg tablet 10 mg PO DAILY #90 tabs 06/12/21 04/18/22 atenolol 50 mg tablet (Tenormin) 50 mg PO DAILY #90 tab-caps 11/27/21 04/18/22 atorvastatin 20 mg tablet (Lipitor) 20 mg PO DAILY #90 tab-caps 11/27/21 04/18/22 sertraline 25 mg tablet 25 mg PO DAILY #90 tabs 02/24/22 04/18/22 nitroglycerin 0.4 mg sublingual 0.4 mg sublingual PRN #25 tab-caps 03/23/22 04/18/22 tablet (Nitrostat) cyclobenzaprine 5 mg tablet 5 mg PO BID PRN #10 tabs 04/18/22 methylprednisolone 4 mg tablets in See Rx Instructions PO .COMPLEX 04/18/22 a dose pack (Medrol (Son)) #21 dose pk Previous Rx's Medication Instructions Recorded triamcinolone acetonide 0.1 % 1 applic topical BID PRN scalp 07/29/18 topical cream rash #30 grams clotrimazole 1 % topical cream 1 applic topical TID #24 grams 11/22/18 (Lotrimin AF (clotrimazole)) fenofibrate nanocrystallized 48 mg 48 mg PO DAILY #90 tab-caps 06/09/21 tablet (Tricor) lisinopril 10 mg tablet 10 mg PO DAILY #90 tabs 06/12/21 atenolol 50 mg tablet (Tenormin) 50 mg PO DAILY #90 tab-caps 11/27/21 atorvastatin 20 mg tablet (Lipitor) 20 mg PO DAILY #90 tab-caps 11/27/21 sertraline 25 mg tablet 25 mg PO DAILY #90 tabs 02/24/22 nitroglycerin 0.4 mg sublingual 0.4 mg sublingual PRN #25 tab-caps 03/23/22 tablet (Nitrostat) cyclobenzaprine 5 mg tablet 5 mg PO BID PRN #10 tabs 04/18/22 methylprednisolone 4 mg tablets in See Rx Instructions PO .COMPLEX 04/18/22 a dose pack (Medrol (Son)) #21 dose pk Allergies Allergy/AdvReac Type Severity Reaction Status Date / Time clindamycin Allergy Intermediate Facial Verified 04/18/22 12:09 swelling ibuprofen Allergy Intermediate FACIAL Verified 04/18/22 12:09 SWELLING naproxen Allergy Intermediate FACIAL Verified 04/18/22 12:09 SWELLING Penicillins Allergy Intermediate FACIAL Verified 04/18/22 12:09 SWELLING Sulfa (Sulfonamide Allergy Unknown Verified 04/18/22 12:09 Antibiotics) General Stated Complaint: Nk/Back Pain IVETTE: 4 PFSH All Active Problems (Updated 04/18/22 @ 13:44 by JL Mendenhall) Acute pain of right hip (Acute) Anxiety (Chronic) Hammertoe of second toe of right foot (Acute) Carpal tunnel syndrome, unspecified upper limb (Acute) Atherosclerosis of koi coronary artery (Acute) s/p angioplasty 1997 cath 07/19-bypass rca and lad Basal cell carcinoma of upper back (Acute) 12/16/16 LEFT UPPER BACK Dysplastic skin lesion (Acute 11/11/16) upper back Essential hypertension (Acute) Hyperlipidemia (Acute) Malignant neoplasm of 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/03) endometrial CA; JONO/radiation Osteoarthritis of spine with radiculopathy, lumbar region (Acute 11/11/16) Smoker (Chronic) quit 2001 smoking now encouraged to quit Lichen sclerosus (Acute 07/17/13) Vaginal lesion (Acute 01/07/02) Status post abdominal hysterectomy (Acute) History of left heart catheterization (Acute) History of coronary angioplasty (Acute) History of appendectomy (Acute) Hypertension (Chronic) a white coat element Subconjunctival bleed (Acute) Skin lesion (Acute) Cerumen impaction (Acute) Trigger finger of all digits of both hands (Acute) Alteration in vision (Acute) Anxiety (Chronic) Hypomagnesemia (Acute) Medical History CAD (coronary artery disease) Hx of cancer of uterus Hyperlipidemia Hypertension Surgical History Abdominal hysterectomy endometrial CA Angioplasty Appendectomy Biopsy, Soft Tissue (02/17/17) skin of back, left spine - residual basal cell carcinoma, completely excised. History of carpal tunnel surgery Bilateral LEFT HEART CARDIAC CATH 50% LAD occluded Family History (Updated 12/03/21 @ 16:04 by Reyna Rodas) FAMILY HISTORY Neoplasm BREAST Social History (Updated 12/03/21 @ 16:04 by Reyna Rodas) Smoking/Tobacco Use Status: Current-Occasional Tobacco Type: cigarettes Quit status: considering quitting Second Hand Exposure: Yes Smoking risk assessment performed?: Yes Alcohol Intake: never Drug use: Never Substance use type: does not use Caregiver/Support person: No Household members: none Housing: house Number of Children: 3 number of grandchildren: 9 Communication Needs: Hard of Hearing Pets and animals: No Sexually active: No What is your relationship status?: How often do you talk on the phone with friends or family?: three or more times per week How often do you get together with friends or relatives?: twice per week How often do you attend jew or advent services?: 1-3 times per year Do you belong to any clubs or organized social groups?: no Panel score (0-1 are the most socially isolated patients): 1 What type of physical activity do you participate in: none Frequency: does not exercise Tigist/Scientology: Church Seatbelt use: always Drive intox or ride w/intox class a regional drivers: No Do you feel safe at home: Yes Do you feel safe in your relationship?: Yes Exam Const General: cooperative, comfortable and no acute distress Orientation: alert and oriented x3 Resp Effort & Inspection: normal respiratory effort Cardio Rate: regular rate GI Inspection: normal to inspection Back/Spine/Pelvis Back: no CVA tenderness Back/spine/pelvis image: 1. tenderness Skin General skin exam: no rashes or lesions noted Full body images: 1. tenderness Neurovascularly intact bilateral lower extremities Neuro General: patient alert and patient oriented x3 Other: Strength and sensation intact distally, neurovascularly intact, Extrem Other: Tenderness with palpation to right hip and glutes, mildly decreased abduction and internal rotation of hip secondary to discomfort Course Vital Signs Vital signs: Vital Signs Temperature 36.8 C 04/18/22 12:05 Pulse 68 04/18/22 12:05 Respiratory Rate 18 04/18/22 12:05 Blood Pressure 167/70 H 04/18/22 12:05 Pulse Oximetry 98 04/18/22 12:05 Temperature 36.1 C L 04/18/22 13:53 Temperature Source Tympanic 04/18/22 13:53 Pulse 59 L 04/18/22 13:53 Respiratory Rate 16 04/18/22 13:53 Respiratory Effort Normal, Non-Labored 04/18/22 12:10 Blood Pressure 163/76 H 04/18/22 13:53 Blood Pressure Position Sitting 04/18/22 12:05 Pulse Oximetry 98 04/18/22 13:53 Oxygen Delivery Method Room Air 04/18/22 13:53 Oxygen Flow Rate 0 04/18/22 13:53 Pain Level 5 04/18/22 12:59
== END 2022-04-18 13:58 | disposition home or self-care (01) ==
PROVIDERS: Emergency Provider Physician Assistant; PCP Family Medicine
DX: M25.551 Pain in right hip (principal); I10 Essential (primary) hypertension
CPT/HCPCS: 99283; 73502

== ENCOUNTER 2022-06-13 12:37 | Outpatient (REF) | payer MEDICARE, OTHER, SELFPAY ==
[2022-06-13 16:47] LABS: Abs Immature Grans 0.03 10^3/uL (0.0-0.06); Absolute Basophil Count 0.04 10^3/uL (0.0-0.2); Absolute Eosinophil Count 0.07 10^3/uL (0.0-0.7); Absolute Lymphocyte Count 0.96 10^3/uL (1.2-3.4); Absolute Monocyte Count 0.45 10^3/uL (0.1-0.8); Absolute Neutrophil Count 5.84 10^3/uL (1.2-6.7); Basophils % 0.5; Eosinophils % 0.9; HCT 41.4 % (36.0-46.0); HGB 13.4 g/dL (11.2-15.7); Immature Grans % 0.4; MCH 29.8 pg (27.0-33.0); MCHC 32.4 % (32.0-36.0); MCV 92 fL (80-95); MPV 10.1 fL (8.0-11.0); Monocytes % 6.1; Neutrophils % 79.1; Platelet Count 176 10^3/uL (130-400); RDW 12.8 % (11.7-14.6); RDW-SD 43.4 fL; WBC 7.39 10^3/uL (4.4-10.8)
[2022-06-13 16:49] LABS: ESR 3 mm/hr (0-30)
[2022-06-13 16:56] LABS: ALT 22 U/L (14-59); AST 20 U/L (15-37); Albumin 4.4 g/dL (3.4-5.0); Alkaline Phosphatase 72 U/L (46-116); Anion Gap 9.2 mmol/L (3-11); BUN 17 mg/dL (7-18); Bilirubin, Total 0.6 mg/dL (0.2-1.0); CO2 25.8 mmol/L (21.0-32.0); CREATININE 0.9 mg/dL (0.55-1.02); Calcium 9.7 mg/dL (8.5-10.1); Chloride 101 mmol/L (98-107); Estimated GFR 62.26 (mL/min/1.73m2); Glucose 109 mg/dL (74-106); Potassium 4.7 mmol/L (3.5-5.1); Sodium 136 mmol/L (136-145); Total Protein 7.3 g/dL (6.4-8.2)
== END 2022-06-13 12:38 | disposition home or self-care (01) ==
LOC: LBN 12:37
PROVIDERS: PCP Family Medicine; Visit Provider Nurse Practitioner Family
DX: R51.9 Headache, unspecified (principal); M25.50 Pain in unspecified joint
CPT/HCPCS: 80053; 85652; 85025

== ENCOUNTER 2023-06-15 10:45 | Outpatient (CLI) | payer MEDICARE, OTHER, SELFPAY ==
[2023-06-15 12:24] LABS: Estimated GFR 54.53 (mL/min/1.73m2)
[2023-06-15 13:14] LABS: Hemoglobin A1C 5.6 % (<5.7)
== END 2023-06-15 10:46 | disposition home or self-care (01) ==
LOC: LOS 10:46
PROVIDERS: PCP Family Medicine; Referring Provider Family Medicine; Visit Provider Family Medicine
DX: E11.51 Type 2 diabetes mellitus with diabetic peripheral angiopathy without gangrene (principal); I10 Essential (primary) hypertension
CPT/HCPCS: 36415; 82565; 83036; 84132

== ENCOUNTER 2023-09-21 21:46 | Outpatient (REF) | payer MEDICARE, OTHER, SELFPAY | END 2023-09-21 21:47 | disposition home or self-care (01) | LOC: LBN 21:46 | PROVIDERS: PCP Family Medicine; Visit Provider Family Medicine | DX: N39.0 Urinary tract infection, site not specified (principal) | CPT/HCPCS: 87077; 87086; 87186 ==

== ENCOUNTER 2024-11-24 13:21 | Outpatient (CLI) | payer MEDICARE, OTHER, SELFPAY ==
[2024-11-24 15:58] LABS: Estimated GFR 54.19 (mL/min/1.73m2); Potassium 4.6 mmol/L (3.5-5.1)
== END 2024-11-24 13:22 | disposition home or self-care (01) ==
LOC: LOS 13:22
PROVIDERS: PCP Family Medicine; Visit Provider Family Medicine
DX: I10 Essential (primary) hypertension (principal)
CPT/HCPCS: 36415; 82565; 84132

== ENCOUNTER → 2024-12-07 09:45 | Outpatient (BNVA) | payer MEDICARE, OTHER, SELFPAY | PROVIDERS: PCP Family Medicine; Referring Provider Family Medicine; Visit Provider Podiatrist | DX: L84 Corns and callosities (principal); M79.671 Pain in right foot; M21.611 Bunion of right foot; M21.612 Bunion of left foot; M20.41 Other hammer toe(s) (acquired), right foot; M20.42 Other hammer toe(s) (acquired), left foot; I73.89 Other specified peripheral vascular diseases; L90.8 Other atrophic disorders of skin; R09.89 Other specified symptoms and signs involving the circulatory and respiratory systems; I83.93 Asymptomatic varicose veins of bilateral lower extremities; L65.9 Nonscarring hair loss, unspecified; R23.8 Other skin changes; R23.4 Changes in skin texture; L85.8 Other specified epidermal thickening | CPT/HCPCS: 99214; 11055 ==